=== PATIENT | male | born 1945 | race Caucasian/White ===

== ENCOUNTER 2018-11-05 16:39 | Emergency (ER) | payer OTHER, MEDICARE ==
[2018-11-05] MEDS ORDERED: SUCCINYLCHOLINE CHLORIDE VIAL 200 MG/10 ML VIAL IV ONE (16:41)
[2018-11-05] MEDS ORDERED: SODIUM CHLORIDE 0.9% 1,000 ML IV STA (16:46)
[2018-11-05] MEDS ORDERED: TRANEXAMIC ACID 1,000 MG in SODIUM CHLORIDE 0.9% 100 ML IVPB STA (16:46)
[2018-11-05] MEDS ORDERED: TRANEXAMIC ACID 1,000 MG in SODIUM CHLORIDE 0.9% 100 ML IV STA (16:46)
[2018-11-05] MEDS ORDERED: TRANEXAMIC ACID 1,000 MG in SODIUM CHLORIDE 0.9% 250 ML IV ONE (16:46)
[2018-11-05] MEDS ORDERED: DIPH,PERTUS(ACELL)TETVAC-LF 0.5 ML VIAL IM ONE (16:46)
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
[2018-11-05] MEDS ORDERED: SODIUM BICARB 8.4% 50 ML SYR (1 MEQ/ML) ONE (17:20)
[2018-11-05] MEDS ORDERED: EPINEPHrine 10 ML SYRINGE (0.1 MG/ML) ONE (17:20)
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
[2018-11-05 18:00] LABS: Basophils % (A) 1 %; Eosinophils # (A) 0.1 k/uL (0-0.7); Eosinophils % (A) 2 %; HCT 31.3 % (39.0-53.0); HGB 10.1 gm/dL (13.0-17.5); Hypochromasia Marked; Lymphocytes # (A) 2.5 k/uL (1.0-4.8); Lymphocytes % (A) 46 %; MCHC 32.2 g/dL (31.0-37.0); MCV 89.9 fL (80.0-100.0); Mean Platelet Volume 7.2; Monocytes # (A) 0.1 k/uL (0-1.0); Monocytes % (A) 2 %; Neutrophils # (A) 2.6 k/uL (1.3-7.7); Neutrophils % (A) 48 %; Platelet Count 87 k/uL (150-450); RBC 3.48 m/uL (4.30-5.90); RDW 15.5 % (11.5-15.5); WBC 5.5 k/uL (3.8-10.6)
[2018-11-05 18:18] LABS: ALT 395 U/L (21-72); AST 389 U/L (17-59); African American GFR (CKD) 60 (>60 ml/min/1.73 sqM); Albumin 1.2 g/dL (3.5-5.0); Alcohol <10 mg/dL; Alkaline Phosphatase 34 U/L (38-126); Amylase 97 U/L (30-110); Anion Gap 19 mmol/L; Blood Urea Nitrogen 17 mg/dL (9-20); Carbon Dioxide 12 mmol/L (22-30); Chloride 108 mmol/L (98-107); Glucose 260 mg/dL (74-99); Potassium 5.9 mmol/L (3.5-5.1); Sodium 139 mmol/L (137-145); Total Bilirubin 0.2 mg/dL (0.2-1.3); Total Protein 2.4 g/dL (6.3-8.2)
[2018-11-05 18:22] LABS: INR 2.1 (<1.2); Prothrombin Time 20.4 sec (9.0-12.0)
[2018-11-05 18:26] LABS: Creatine Kinase MB 14.5 ng/mL (0.0-2.4)
[2018-11-05 18:32] LABS: Calcium 5.8 mg/dL (8.4-10.2)
[2018-11-05 18:33] LABS: Troponin I 0.065 ng/mL (0.000-0.034)
[2018-11-05 18:39] LABS: Partial Thromboplastin Time 124.5 sec (22.0-30.0)
[2018-11-05 18:43] LABS: Appearance,Urine Cloudy (Clear); Bilirubin,Urine Negative (Negative); Blood,Urine Large (Negative); Color,Urine Red; Glucose,Urine (UA) Negative (Negative); Ketones,Urine Negative (Negative); Leukocyte Esterase,Urine Small (Negative); Mucus,Urine Occasional /hpf; Nitrite,Urine Negative (Negative); Protein,Urine 2+ (Negative); RBC,Urine >182 /hpf (0-5); Specific Gravity,Urine 1.018 (1.001-1.035); Urobilinogen,Urine <2.0 mg/dL (<2.0); WBC,Urine 55 /hpf (0-5)
[2018-11-05 18:47] LABS: Amphetamine Screen,Urine Not Detected (NotDetected); Barbiturate Screen,Urine Not Detected (NotDetected); Benzodiazepines Screen,Urine Not Detected (NotDetected); Cocaine Screen,Urine Not Detected (NotDetected); Methadone Screen, Urine Not Detected (NotDetected); Opiate Screen,Urine Not Detected (NotDetected); Oxycodone Screen, Urine Not Detected (NotDetected); Phencyclidine Screen,Urine Not Detected (NotDetected); Tricyclic Antidepressant,Urine Not Detected (NotDetected); Urn Cannabinoid Scrn Not Detected (NotDetected)
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
[2018-11-06] MEDS ORDERED: MIDAZOLAM 1 MG/ML 5 ML VIAL IV STA (01:41)
[2018-11-06] MEDS ORDERED: SODIUM CHLORIDE 0.9% 1,000 ML IV STA ×2 (01:45→01:46)
[2018-11-06 01:50] VITALS: BP 70/40; PULSE 61; RESP 10; TEMP 96
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
== END 2018-11-05 17:49 | disposition expired ==
LOC: EC 16:39
DX: S06.6X0A Traumatic subarachnoid hemorrhage without loss of consciousness, initial encounter (principal); S27.2XXA Traumatic hemopneumothorax, initial encounter; S02.0XXB Fracture of vault of skull, initial encounter for open fracture; S22.41XA Multiple fractures of ribs, right side, initial encounter for closed fracture; S22.20XA Unspecified fracture of sternum, initial encounter for closed fracture; S12.500A Unspecified displaced fracture of sixth cervical vertebra, initial encounter for closed fracture; S12.400A Unspecified displaced fracture of fifth cervical vertebra, initial encounter for closed fracture; S22.089A Unspecified fracture of T11-T12 vertebra, initial encounter for closed fracture; S42.034A Nondisplaced fracture of lateral end of right clavicle, initial encounter for closed fracture; S32.019A Unspecified fracture of first lumbar vertebra, initial encounter for closed fracture; S32.029A Unspecified fracture of second lumbar vertebra, initial encounter for closed fracture; S22.21XA Fracture of manubrium, initial encounter for closed fracture; S51.811A Laceration without foreign body of right forearm, initial encounter; J98.11 Atelectasis; Z53.8 Procedure and treatment not carried out for other reasons; Z79.899 Other long term (current) drug therapy; V44.5XXA Car driver injured in collision with heavy transport vehicle or bus in traffic accident, initial encounter; Y92.410 Unspecified street and highway as the place of occurrence of the external cause
CPT/HCPCS: 99291; 36556; 31500; 92950; 96365; 36415; 86900; 86901; 80053; 82150; 82550; 82553; 83605; 83690; 84484; 85025; 85610; 85730; 86850; 86920; 81001; 80306; 80320; 72170; 71045; 72125; 70450; 71260; 74177; P9016; J0171; J2250; J0330; Q9967; 36430; 94002; 96361